=== PATIENT | male | born 1990 | race Caucasian/White ===

== ENCOUNTER 2018-07-05 06:34 | Emergency (ER) | payer OTHER ==
[~2018-07-05] VITALS: Ht 180.3 cm; Wt 53.5 kg
[2018-07-05 07:20] LABS: BASOPHIL (%) 0.5 % (0-1); BASOPHIL COUNT 0.1 K/uL (0-0.1); EOSINOPHIL (%) 1.5 % (0-5); EOSINOPHIL COUNT 0.1 K/uL (0-0.3); HEMATOCRIT 44.2 % (38.0-50.0); HEMOGLOBIN 14.9 G/DL (12.5-16.6); IMMATURE GRANULOCYTE (%) 0.3 % (0.0-0.7); LYMPHOCYTE (%) 21.3 % (15-42); MCH 30.7 PG (29.0-34.0); MCHC 33.7 G/DL (30.0-36.0); MCV 90.9 FL (86-99); MONOCYTE COUNT 0.8 K/uL (0-0.8); NEUTROPHIL (%) 67.4 % (45-76); NEUTROPHIL COUNT 6.3 K/uL (1.8-6.4); PLATELET COUNT 210 K/uL (156-360); RBC DIS.WIDTH-CV 13.6 % (11.8-14.6); RBC DIS.WIDTH-SD 45.9 % (39-53); RED BLOOD COUNT 4.86 M/uL (4.00-5.50); WHITE BLOOD COUNT 9.3 K/uL (4.1-10.2)
[2018-07-05 07:45] LABS: APPEARANCE SL.HAZY ((CLEAR)); BILIRUBIN NEGATIVE; BLOOD NEGATIVE; COLOR YELLOW ((YELLOW)); GLUCOSE (STRIP) NEGATIVE; KETONES NEGATIVE; LEUKOCYTES NEGATIVE; NITRITE NEGATIVE; PROTEIN (STRIP) NEGATIVE; SPECIFIC GRAVITY 1.025 (1.000-1.030)
[2018-07-05 07:49] LABS: ALBUMIN 4.4 G/DL (3.2-4.8); CHLORIDE 100 MEQ/L (99-109); POTASSIUM 3.5 MEQ/L (3.7-5.4); SODIUM 139 MEQ/L (136-147); TOTAL BILIRUBIN 0.3 MG/DL (0.0-1.0)
[2018-07-05 07:55] LABS: ALKALINE PHOSPHATASE 72 IU/L (3-129); ALT (GPT) 7 IU/L (3-49); AST (GOT) 9 IU/L (2-34); CREATININE 0.9 MG/DL (0.6-1.3); GFR ESTIMATE (CALCULATED) > 59 mL/min/ (58.99-99999); GLUCOSE 99 mg/dL (70-99); LIPASE 31 U/L (1.0-51.0); TOTAL PROTEIN 7.1 G/DL (6.4-8.3); UREA NITROGEN (BUN) 11 mg/dL (9-23)
[2018-07-05 07:56] LABS: BACTERIA RARE /HPF; CALCIUM OXALATE CRYSTALS 3+ /HPF; EPITHELIAL CELLS RARE /HPF; HYALINE CASTS 0-5 /LPF; MUCUS 3+ /LPF; RED BLOOD CELLS 0-5 /HPF (0-5); UCUL ADDED? NO; WHITE BLOOD CELLS 0-5 /HPF (0-5)
[2018-07-05 08:18] LABS: AMPHETAMINE NEGATIVE (500 ng/mL); BARBITURATES NEGATIVE (200 ng/mL); BENZODIAZEPINES NEGATIVE (150 ng/mL); BUPRENORPHINE NEGATIVE (10 ng/mL); COCAINE NEGATIVE (150 ng/mL); METHADONE NEGATIVE (200 ng/mL); METHAMPHETAMINE NEGATIVE (500 ng/mL); OPIATES (MORPHINE) NEGATIVE (100 ng/mL); OXYCODONE NEGATIVE (100 ng/mL); PHENCYCLIDINE NEGATIVE (25 ng/mL); PROPOXYPHENE NEGATIVE (300 ng/mL); THC CANNABINOIDS PRESUMPTIVE POSITIVE (50 ng/mL); TRICYCLIC ANTIDEPRESSANTS NEGATIVE (300 ng/mL)
[2018-07-05 09:27] VITALS: BP 118/87
== END 2018-07-05 09:27 | disposition left against medical advice (07) ==
LOC: EME 06:34
PROVIDERS: Emergency Medicine
DX: R10.9 Unspecified abdominal pain (principal); G89.29 Other chronic pain; Z87.19 Personal history of other diseases of the digestive system; F17.200 Nicotine dependence, unspecified, uncomplicated
CPT/HCPCS: 76770; 80053; 81003; 83690; 84999; 85025; 99281; 99284; J1885; J2405; J3010; J7040